=== PATIENT | male | born 1965 | race Caucasian/White ===

== ENCOUNTER → 2017-04-09 | Day surgery (SDC) | payer OTHER ==
[2017-04-02 08:39] VITALS: Ht 162.6 cm; Wt 74.0 kg
--- NOTE | 2017-04-02 09:10 | PAT Medication Instructions ---
Service Date Apr 02, 2017. Current Home Medication List Dextromethorphan-Guaifenesin (Mucinex Dm), 1 TAB PO UD PRN for COLD SYMPTOMS Omeprazole (Prilosec), 20 MG PO QAM Medication Instructions For Your Scheduled Surgery - Hold the following medications the morning of surgery: Dextromethorphan-Guaifenesin (Mucinex Dm), 1 TAB PO UD PRN for COLD SYMPTOMS - Take the following medications the morning of surgery with a sip of water: Omeprazole (Prilosec), 20 MG PO QAM - Take the following medications as scheduled the night before surgery: Dextromethorphan-Guaifenesin (Mucinex Dm), 1 TAB PO UD PRN for COLD SYMPTOMS If you have any questions please call us at [phone] or [phone] or [phone]
--- NOTE | 2017-04-02 09:56 | DIAGNOSTIC IMAGING REPORT ---
CHEST 2 VIEWS ROUTINE CLINICAL HISTORY: Preoperative chest COMPARISON STUDY: Chest CT performed November 2009 FINDINGS: The heart is borderline enlarged. There is no failure. There is no focal pulmonary consolidation. There are no pleural effusions.[ IMPRESSION: No active disease in the chest. Electronically signed by: Everardo Nicholson M.D. 04/02/2017 9:55 AM Dictated Date/Time: 04/02/2017 9:54 AM
[2017-04-02 10:05] LABS: BASO % 0.7 %; BASO ABS # 0.04 K/uL (0-0.2); COMPLETE YES; EOS % 1.8 %; HEMATOCRIT 47.8 % (42-52); IG% 0.2 %; LYMPH % 28.4 %; LYMPH ABS # 1.73 K/uL (1.2-3.4); MEAN CELL VOLUME 86.6 fL (80-100); MEAN CORPUSCULAR HEMOGLOBIN 29.3 pg (25-34); MEAN CORPUSCULAR HGB CONC 33.9 g/dl (32-36); MEAN PLATELET VOLUME 9.7 fL (7.4-10.4); NEUT % 58.9 %; PLATELET COUNT 290 K/uL (130-400); RED BLOOD COUNT 5.52 M/uL (4.7-6.1); WHITE BLOOD COUNT 6.09 K/uL (4.8-10.8)
[2017-04-02 10:16] LABS: BUN/CREATININE RATIO 16.1 (10-20); CALCIUM 9.7 mg/dl (8.5-10.1); CREATININE 0.87 mg/dl (0.60-1.40); POTASSIUM 4.7 mmol/L (3.5-5.1)
[~2017-04-09] VITALS: Ht 162.6 cm; Wt 74.0 kg
[~2017-04-09] MED LIST: ATROPINE SULFATE 0.1 MG/ML 5ML SYR IV PRN; BACITRACIN 50000 UNIT VIAL ONE; BUPIVACAINE 0.5 % 5 MG/1 ML MPF 30ML VIAL ONE; BUPIVACAINE/EPINEPHRINE 0.5% MPF 1:200,000 30 ML VIAL ONE; DEXAMETHASONE SOD INJ 4 MG/ML VIAL ONE; DEXT30TA7 PO; EpHEDrine SULFATE INJ 50 MG/ML AMP IV PRN; FENTANYL CITRATE INJ 50 MCG/1 ML 2 ML VIAL ONE; GLYCOPYRROLATE INJ 0.2 MG/ML VIAL ONE; HYDROmorphone INJ 0.5 MG/0.5 ML SYR IV PRN; KETOROLAC TROMETHAMINE 30 MG/ML VIAL ONE; LACTATED RINGER'S 1000ML 1,000 ML IV SCH; LIDOCAINE HCL 2% 2 ML VIAL (20MG/ML) ONE; MEPERIDINE HCL 25 MG/ML CARP IV PRN; MIDAZOLAM HCL 1 MG/ML 2ML VIAL ONE; MoRPHine SULFATE 4 MG/ML 1 ML CARP\\VIAL IV PRN; NEOSTIGMINE METHYLSULFATE 5 MG/5 ML SYR ONE; ONDANSETRON INJ 2 MG/ML 2 ML VIAL IV PRN; ONDANSETRON INJ 2 MG/ML 2 ML VIAL ONE; OXYC-57 PO; OXYCODONE/ACETAMINOPHEN 5-325 TAB PO PRN; PHENYLEPHRINE 100MCG/ML 5ML SYR ONE; PRLSR20 PO; PROMETHAZINE HCL INJ 12.5 MG in SODIUM CHLORIDE 0.9% 50ML 50 ML IV PRN; PROPOFOL IV EMULSION 10 MG/ML 20 ML VIAL IV ONE; ROCURONIUM BROMIDE 10 MG/ML 5 ML VIAL IV ONE
--- NOTE | 2017-04-09 08:18 | Discharge Instructions ---
Discharge Instructions Date of Service Apr 09, 2017. Visit Reason for Visit: Left Inguinal Hernia Discharge Discharge Diagnosis / Problem: inguinal hernia repair left, umbilical hernia repair Discharge Goals Goal(s): Decrease discomfort Activity Recommendations Activity Limitations: as noted below Lifting Limitations: no more than 10 pounds Shower/Bathe: tomorrow Driving or Machine Use: resume 3 days after discharge Anesthesia . Post Anesthesia Instructions: If you have had General Anesthesia or IV Sedation: * Do not drive today. * Resume driving when surgeon permits. * Do not make important decisions or sign legal documents today. * Call surgeon for: 1. Temperature elevations greater than 101 degrees F. 2. Uncontrollable pain. 3. Excessive bleeding. 4. Persistent nausea and vomiting. 5. Medication intolerance (nausea, vomiting or rash). * For nausea and vomiting use only clear liquids such as: tea, soda, bouillon until nausea subsides, then gradually increase diet as tolerated. * If you have any concerns or questions, call your surgeon's office. If physician is unavailable and it is an emergency, call 911 or go to the nearest emergency room. . Instructions / Follow-Up Instructions / Follow-Up Dr. Rao in 1 week, call [phone] for any questions or if you do not already have an appt Diet Recommendations Recommended Home Diet: no limitations Pending Studies Studies pending at discharge: no Medical Emergencies . Who to Call and When: Medical Emergencies: If at any time you feel your situation is an emergency, please call 911 immediately. . Non-Emergent Contact Non-Emergency issues call your: Surgeon Call Non-Emergent contact if: you have a fever, temperature is above 101.5, your pain is not controlled, you have any medication questions . . "Provider Documentation" section prepared by Tucker Raymond. . [place] Drug Monitoring Program Search Results: no issues identified
--- NOTE | 2017-04-09 09:54 | History & Physical Bridge Note ---
H&P Re-Evaluation Bridge Note: I have examined the patient, reviewed the History & Physical and in the interval since the performance of the History & Physical I have noted the following changes of clinical significance: No changes noted pt marked SO at bedside. States recently pain in left bacvk from hernia similar to what he had on right before repair
--- NOTE | 2017-04-09 12:08 | [facility] Operative Report ---
Operative Report Operative Date Apr 09, 2017. Pre-Operative Diagnosis 1. Left inguinal hernia 2. Umbilical hernia Post-Operative Diagnosis 1. Left femoral hernia 2. Umbilical hernia Procedure(s) Performed Laparoscopic Left Femoral Hernia Repair with Mesh;Exploration of right groin -negative for hernia, Open Umbilical Hernia Repair with mesh ; Left Femoral lymph node biopsy Surgeon Dr. Roberto Rao [employer] Surgeon(s) Tucker Raymond PA-C Estimated Blood Loss 5 ml Findings neg rec hernia right ing area femoral lymph node in canal excised, inc umbilical hernia Specimens Permanent specimens A: Left femoral lymph node B: Incarcerated fatty tissue umbilical area Indications OR summary dictated confirmation number [id number] I attest to the content of the Intraoperative Record and any orders documented therein. Any exceptions are noted below.
[2017-04-09] MEDS: FENTANYL CITRATE INJ 50 MCG/1 ML 2 ML VIAL IV PRN ×2 (12:17→12:22)
--- NOTE | 2017-04-09 12:40 | OPERATIVE REPORT ---
DATE OF OPERATION: 04/09/2017 PREOPERATIVE DIAGNOSIS: Recurrent right inguinal hernia, left femoral hernia and incarcerated umbilical hernia. POSTOPERATIVE DIAGNOSIS: Negative recurrent right inguinal hernia, small femoral hernia with lymph node, incarcerated umbilical hernia. PROCEDURE: Laparoscopic exploration right inguinal canal, laparoscopic repair of femoral hernia with excision of lymph node, open repair of incarcerated umbilical hernia with Marlex mesh. SURGEON: Dr. Rao. TRENCH PIPE LAYER HELPER: John Raymond PA-C. OPERATION AND FINDINGS: SUMMARY: The patient was brought into the operating room theater. The abdomen was prepped with Betadine scrubbing solution and properly draped. Sullivan catheter had been inserted. Systemic antibiotics was given with Cipro since the patient had anaphylaxis to penicillin. At this point, I elected to make a small incision linearly above the umbilicus away from the incarcerated tissue at the umbilical opening and placed a Veress needle followed by CO2. Point of entry inspected. At this time no injury identified, although we could tell there probably was some incarcerated tissue that kept us from seeing the lower abdomen. At this point, under direct visualization, we put 3 mm right flank port at the level of the umbilicus lateral to the rectus with preemptive local analgesia 1% Xylocaine without epinephrine. Then I used a 5 mm port placed at the level of the umbilicus in the left lower quadrant. We then placed a camera in the lateral port and could identify that the patient had an incarcerated omentum stuck in the umbilical area. This was removed by blunt dissection from lateral port. At this point, we placed the patient in low Trendelenburg position, rotated to the left. I inspected the right groin area. There was no dimpling of any of the skin itself. We then dissected out along Oliverio's ligament. There was no evidence of any recurrent hernia. We incised this area at the level of the conjoined tendon transversely to the point that the inferior epigastric vessels. We explored, there was no indirect recurrent hernia and no femoral hernia and no direct inguinal hernia. At this point, we left this area wide open. We did not reperitonealize it. Attention was then turned to the left lower quadrant by first rotating the patient to the right in Trendelenburg. We similarly used scissors to incise lateral beyond the internal ring transversely at the level conjoined tendon all the way down to the medial umbilical ligament. Once we had explored that area we could not see any obvious hernia per se. We had seen no dimpling on initial inspection. The patient did have some adhesions in the anterior abdominal wall, omental adhesions down to the left lower quadrant, probably possibility of some diverticular problem. These we took down by sharp dissection. At this point we then explored further. I then went down to explore the Oliverio's ligament, identified that the patient had incarcerated tissue down into the femoral canal, not significantly going beyond just by the opening. We at this point, mobilized it, appeared to be 1-2 cm in size, mostly we used a clip round up ring hand to control some drainage from this lymph node. We took it out of the abdomen through the 5 mm left flank port site and would send it for permanent section. The area was then checked for hemostasis and appeared satisfactory. There was a small lipoma along the cord but certainly was not significant enough to account for the patient's discomfort. Once we explored all that area then I elected to place a sheet of Marlex mesh, even though we did not find any direct evidence of hernia except some in the femoral area, we made sure that we covered down the femoral canal with the mesh all the way up to the direct component and indirect area. We incised the peritoneum to the point that the peritoneal reflection, so this was seemed to be adequate. Once this had been completed, we then closed the peritoneum by using carolyn. Attention was then turned to the right inguinal area. Again, there was no evidence of any bleeding and completely took out all the instruments. The opening that we made above the umbilicus extended right through the umbilical area inferiorly and we were able to dissect out the fascia circumferentially around these 2 defects, 1 was 5 mm that we placed intentionally above the umbilical area. The other one was the opening that the patient had an incarcerated tissue near. The opening itself was about 1.5 cm. At this point rather than close it primarily I did put 2-0 Dexon suture in the 5 mm trocar site that we had to approximate the fascia, but there is no incarcerated tissue that we returned into the abdomen. That defect I did not close primarily. I brought in a sheet of Marlex mesh and onlaid it onto the opening in a tension free fashion using continuous 2-0 nylon suture. Of note, we made sure that there was no peritoneal component or open prior to placing this mesh. Once we had done this, we then had a significant overlap that we were able then to place and attach it to the abdominal wall anteriorly on the fascia with another 2-0 nylon suture. Repair appeared to be solid, tension free. Topical antibiotics was used. The wound was then closed with 2-0 Dexon interrupted sutures and Monocryl. The other ones were also closed with 4-0 Monocryl and Steri-Strips applied. The procedure was tolerated well by the patient. Estimated blood loss approximately 5 mL. The patient was taken to recovery room in good condition. I attest to the content of the Intraoperative Record and any orders documented therein. Any exception s are noted below.
--- NOTE | 2017-04-09 12:41 | Anesthesiology Progress Note ---
Anesthesia Post Op Note Date & Time Apr 09, 2017 at 12:41 Vital Signs Pain Intensity: 4 Vital Signs Past 12 Hours Date Time Temp Pulse Resp B/P (MAP) Pulse Ox O2 Delivery O2 Flow Rate FiO2 04/09/17 12:35 36.8 85 16 151/81 93 Room Air 04/09/17 12:25 88 14 149/96 100 Oxymask 10 04/09/17 12:15 75 14 158/96 100 Oxymask 8 04/09/17 12:05 89 16 152/90 100 Oxymask 8 04/09/17 12:02 36.6 88 18 145/92 100 Oxymask 8 Notes Mental Status: alert / awake / arousable, participated in evaluation Pt Amnestic to Procedure: Yes Nausea / Vomiting: adequately controlled Pain: adequately controlled Airway Patency, RR, SpO2: stable & adequate BP & HR: stable & adequate Hydration State: stable & adequate Anesthetic Complications: no major complications apparent
[2017-04-09 12:51] VITALS: BP 141/83; PULSE 82; TEMP 37.3; O2SAT 94
[2017-04-09 13:17] VITALS: BP 124/90; PULSE 80; TEMP 37.5; O2SAT 95
[2017-04-09 13:54] VITALS: BP 144/85; PULSE 88; TEMP 37.1; O2SAT 96
== END | disposition home or self-care (01) ==
LOC: C.ACU 07:39
PROVIDERS: ATTEND Surgery
DX: K41.90 Unilateral femoral hernia, without obstruction or gangrene, not specified as recurrent (principal); K42.0 Umbilical hernia with obstruction, without gangrene; M54.12 Radiculopathy, cervical region; M54.31 Sciatica, right side; E78.5 Hyperlipidemia, unspecified; K21.9 Gastro-esophageal reflux disease without esophagitis; Z79.899 Other long term (current) drug therapy; I10 Essential (primary) hypertension; G47.33 Obstructive sleep apnea (adult) (pediatric)